=== PATIENT | male | born 1980 | race Asian ===

== ENCOUNTER 2019-05-02 22:02 | Emergency (ER) | payer BC ==
[~2019-05-02] VITALS: Ht 182.9 cm; Wt 102.1 kg
[2019-05-02 22:11] VITALS: Ht 182.9 cm; Wt 102.1 kg
[2019-05-02 23:59] VITALS: BP 149/99
== END 2019-05-02 23:59 | disposition home or self-care (01) ==
LOC: ED 22:02
DX: S61.216A Laceration without foreign body of right little finger without damage to nail, initial encounter (principal); W25.XXXA Contact with sharp glass, initial encounter; Y93.G1 Activity, food preparation and clean up; Y92.89 Other specified places as the place of occurrence of the external cause; Y99.8 Other external cause status
CPT/HCPCS: 90715; A4570; J2001; Q0092

== ENCOUNTER 2019-05-09 19:32 | Emergency (ER) | payer BC ==
[~2019-05-09] VITALS: Ht 182.9 cm; Wt 102.5 kg
[2019-05-09 19:35] VITALS: BP 134/94; Ht 182.9 cm; Wt 102.5 kg
== END 2019-05-09 20:24 | disposition home or self-care (01) ==
LOC: ED 19:32
DX: S61.216D Laceration without foreign body of right little finger without damage to nail, subsequent encounter (principal); X58.XXXD Exposure to other specified factors, subsequent encounter